=== PATIENT | female | born 1980 | race Caucasian/White ===

== ENCOUNTER 2017-09-10 10:04 | Inpatient (IN) | payer OTHER ==
[2017-09-10 10:57] VITALS: BMI 31.8
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
[2017-09-10] MEDS ORDERED: P-EPHED 60MG/TRIPROLIDI 2.5MG TABLET PO PRN (12:54)
[2017-09-10] MEDS ORDERED: IBUPROFEN 400 MG TABLET (FP) PO PRN (12:54)
[2017-09-10] MEDS ORDERED: MAGNESIUM CITRATE 300 ML BOTTLE PO PRN (12:54)
[2017-09-10] MEDS ORDERED: MENTHOL/PHENOL 1 EACH UD MM PRN (12:54)
[2017-09-10] MEDS ORDERED: LOPERAMIDE HCL 2 MG CAPSULE PO PRN (12:54)
[2017-09-10] MEDS ORDERED: hydrOXYzine PAMOATE 50 MG CAPSULE (FP) PO PRN (12:54)
[2017-09-10] MEDS ORDERED: MAGNESIUM HYDROX 2400MG/30ML ORAL SUSPENSION 30 ML CUP PO PRN (12:54)
[2017-09-10] MEDS ORDERED: ACETAMINOPHEN 325 MG TABLET (FP) PO PRN (12:54)
[2017-09-10 16:41] LABS: HEMATOCRIT 39.8 % (32.4-45.2); HEMOGLOBIN 13.6 GM/dL (10.7-15.3); MCH 31.3 pg (25.7-33.7); MCHC 34.2 g/dl (32.0-36.0); MEAN CELL VOLUME 91.3 fl (80-96); MEAN PLT VOLUME 9.3 fl (7.5-11.1); PLATELET COUNT 379 K/MM3 (134-434); RBC 4.35 M/mm3 (3.60-5.2); RDW 12.9 % (11.6-15.6); WHITE BLOOD COUNT 15.2 K/mm3 (4.0-10.0)
[2017-09-10 16:55] LABS: ALBUMIN 4.2 g/dl (3.4-5.0); ALK PHOS 69 U/L (45-117); ANION GAP 6 (8-16); BILIRUBIN,TOTAL 0.7 mg/dL (0.2-1.0); BLOOD UREA NITROGEN 23 mg/dL (7-18); CALCIUM 8.9 mg/dL (8.5-10.1); CHLORIDE 106 mmol/L (98-107); CO2 25 mmol/L (21-32); CREATININE 0.8 mg/dL (0.55-1.02); GLUCOSE,RANDOM 290 mg/dL (74-106); SGOT/AST 5 U/L (15-37); SGPT/ALT 22 U/L (12-78); SODIUM 137 mmol/L (136-145); TOT PROT 7.2 g/dl (6.4-8.2)
[2017-09-10] MEDS: TOPIRAMATE 25 MG TABLET (FP) PO SCH (22:31)
[2017-09-10] MEDS: QUEtiapine FUMARATE 100 MG TABLET (FP) PO SCH (22:31)
[2017-09-10] MEDS: THIAMINE HCL 100 MG TABLET (FP) PO SCH (22:31)
[2017-09-10] MEDS: NICOTINE 21 MG/24 HOURS TOPICAL PATCH TD SCH (22:31)
[2017-09-10] MEDS: DIVALPROEX SODIUM 500 MG TABLET E.C. PO SCH (22:31)
[2017-09-11 01:39] LABS: URINE APPEARANCE CLOUDY; URINE BILIRUBIN NEGATIVE (NEGATIVE); URINE BLOOD NEGATIVE (NEGATIVE); URINE COLOR YELLOW; URINE GLUCOSE (UA) 3+ (NEGATIVE); URINE KETONE TRACE (NEGATIVE); URINE NITRITE NEGATIVE (NEGATIVE); URINE PROTEIN NEGATIVE (NEGATIVE); URINE UROBILINOGEN NEGATIVE mg/dL (0.2-1.0)
[2017-09-11] MEDS: TOPIRAMATE 25 MG TABLET (FP) PO SCH ×2 (10:04→21:17)
[2017-09-11] MEDS: QUEtiapine FUMARATE 100 MG TABLET (FP) PO SCH ×2 (10:04→21:17)
[2017-09-11] MEDS: NICOTINE 21 MG/24 HOURS TOPICAL PATCH TD SCH (10:04)
[2017-09-11] MEDS: DIVALPROEX SODIUM 500 MG TABLET E.C. PO SCH ×2 (10:04→21:17)
[2017-09-11] MEDS: PRENATAL VITAMINS W/ FOLIC ACID TABLET (FP) PO SCH (10:04)
[2017-09-11 10:54] LABS: URINE LEUK ESTERASE Negative (NEGATIVE)
[2017-09-11] MEDS: INSULIN (NOVOLOG) ASPART 100 UNITS/ML 10ML VIAL SQ SCH ×2 (16:43→21:02)
[2017-09-11] MEDS ORDERED: INSULIN (NOVOLOG) ASPART 100 UNITS/ML 10ML VIAL ONE (16:45)
[2017-09-11] MEDS: metFORMIN HCL 500 MG TABLET (FP) PO SCH ×2 (16:45→16:46)
[2017-09-11] MEDS: THIAMINE HCL 100 MG TABLET (FP) PO SCH (23:39)
[2017-09-12] MEDS: metFORMIN HCL 500 MG TABLET (FP) PO SCH ×2 (06:47→16:55)
[2017-09-12] MEDS: INSULIN (NOVOLOG) ASPART 100 UNITS/ML 10ML VIAL SQ SCH ×4 (06:48→22:36)
[2017-09-12] MEDS ORDERED: INSULIN (NOVOLOG) ASPART 100 UNITS/ML 10ML VIAL ONE ×3 (06:48→16:53)
--- NOTE | 2017-09-12 08:34 | EKG ---
Test Reason : Blood Pressure : / mmHG Vent. Rate : 098 BPM Atrial Rate : 098 BPM P-R Int : 210 ms QRS Dur : 086 ms QT Int : 342 ms P-R-T Axes : 067 060 051 degrees QTc Int : 436 ms SINUS RHYTHM WITH 1ST DEGREE A-V BLOCK OTHERWISE NORMAL ECG NO PREVIOUS ECGS AVAILABLE Confirmed by MARCOS CHING MD ([id number]) on 09/12/2017 8:33:52 AM Referred By: Confirmed By:MARCOS CHING MD
[2017-09-12] MEDS: QUEtiapine FUMARATE 100 MG TABLET (FP) PO SCH ×2 (10:05→22:33)
[2017-09-12] MEDS: TOPIRAMATE 25 MG TABLET (FP) PO SCH ×2 (10:05→22:33)
[2017-09-12] MEDS: DIVALPROEX SODIUM 500 MG TABLET E.C. PO SCH ×2 (10:05→22:33)
[2017-09-12] MEDS: NICOTINE 21 MG/24 HOURS TOPICAL PATCH TD SCH (10:06)
[2017-09-12] MEDS: PRENATAL VITAMINS W/ FOLIC ACID TABLET (FP) PO SCH (10:06)
[2017-09-12] MEDS: NICOTINE POLACRILEX 4 MG GUM BC PRN (18:46)
[2017-09-12] MEDS: THIAMINE HCL 100 MG TABLET (FP) PO SCH (22:33)
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
[2017-09-13] MEDS: metFORMIN HCL 500 MG TABLET (FP) PO SCH ×2 (07:08→17:04)
[2017-09-13] MEDS: INSULIN (NOVOLOG) ASPART 100 UNITS/ML 10ML VIAL SQ SCH ×4 (07:09→22:08)
[2017-09-13] MEDS: NICOTINE 21 MG/24 HOURS TOPICAL PATCH TD SCH (10:09)
[2017-09-13] MEDS: PRENATAL VITAMINS W/ FOLIC ACID TABLET (FP) PO SCH (10:09)
[2017-09-13] MEDS: DIVALPROEX SODIUM 500 MG TABLET E.C. PO SCH ×2 (10:09→22:07)
[2017-09-13] MEDS: QUEtiapine FUMARATE 100 MG TABLET (FP) PO SCH ×2 (10:09→22:09)
[2017-09-13] MEDS: TOPIRAMATE 25 MG TABLET (FP) PO SCH ×2 (10:09→22:07)
[2017-09-13] MEDS: NICOTINE POLACRILEX 4 MG GUM BC PRN ×2 (10:11→19:19)
[2017-09-13] MEDS ORDERED: INSULIN (NOVOLOG) ASPART 100 UNITS/ML 10ML VIAL ONE ×2 (12:07→23:18)
[2017-09-13] MEDS ORDERED: QUEtiapine FUMARATE 50 MG TABLET ONE (20:50)
[2017-09-13] MEDS: THIAMINE HCL 100 MG TABLET (FP) PO SCH (22:07)
[2017-09-14] MEDS: INSULIN (NOVOLOG) ASPART 100 UNITS/ML 10ML VIAL SQ SCH ×4 (07:08→22:22)
[2017-09-14] MEDS: metFORMIN HCL 500 MG TABLET (FP) PO SCH ×2 (07:08→16:55)
[2017-09-14] MEDS ORDERED: QUEtiapine FUMARATE 50 MG TABLET ONE (08:49)
[2017-09-14] MEDS: NICOTINE 21 MG/24 HOURS TOPICAL PATCH TD SCH (10:19)
[2017-09-14] MEDS: TOPIRAMATE 25 MG TABLET (FP) PO SCH ×2 (10:19→21:44)
[2017-09-14] MEDS: QUEtiapine FUMARATE 100 MG TABLET (FP) PO SCH ×2 (10:19→21:44)
[2017-09-14] MEDS: DIVALPROEX SODIUM 500 MG TABLET E.C. PO SCH ×2 (10:19→21:44)
[2017-09-14] MEDS: PRENATAL VITAMINS W/ FOLIC ACID TABLET (FP) PO SCH (10:19)
[2017-09-14] MEDS: NICOTINE POLACRILEX 4 MG GUM BC PRN ×3 (10:20→16:56)
[2017-09-14] MEDS ORDERED: INSULIN (NOVOLOG) ASPART 100 UNITS/ML 10ML VIAL ONE (11:57)
[2017-09-14] MEDS: THIAMINE HCL 100 MG TABLET (FP) PO SCH (21:45)
[2017-09-15] MEDS: INSULIN (NOVOLOG) ASPART 100 UNITS/ML 10ML VIAL SQ SCH ×4 (07:06→21:36)
[2017-09-15] MEDS: metFORMIN HCL 500 MG TABLET (FP) PO SCH ×2 (07:06→16:58)
[2017-09-15] MEDS: NICOTINE 21 MG/24 HOURS TOPICAL PATCH TD SCH (10:21)
[2017-09-15] MEDS: DIVALPROEX SODIUM 500 MG TABLET E.C. PO SCH ×2 (10:21→21:37)
[2017-09-15] MEDS: PRENATAL VITAMINS W/ FOLIC ACID TABLET (FP) PO SCH (10:21)
[2017-09-15] MEDS: QUEtiapine FUMARATE 100 MG TABLET (FP) PO SCH ×2 (10:21→21:37)
[2017-09-15] MEDS: NICOTINE POLACRILEX 4 MG GUM BC PRN ×4 (10:21→19:55)
[2017-09-15] MEDS: TOPIRAMATE 25 MG TABLET (FP) PO SCH ×2 (10:21→21:37)
[2017-09-15] MEDS ORDERED: INSULIN (NOVOLOG) ASPART 100 UNITS/ML 10ML VIAL ONE ×3 (11:41→22:15)
[2017-09-15] MEDS: THIAMINE HCL 100 MG TABLET (FP) PO SCH (21:37)
[2017-09-16] MEDS: metFORMIN HCL 500 MG TABLET (FP) PO SCH ×2 (06:49→16:44)
[2017-09-16] MEDS ORDERED: INSULIN (NOVOLOG) ASPART 100 UNITS/ML 10ML VIAL ONE ×4 (06:51→21:35)
[2017-09-16] MEDS: INSULIN (NOVOLOG) ASPART 100 UNITS/ML 10ML VIAL SQ SCH ×4 (06:52→21:34)
[2017-09-16] MEDS: NICOTINE 21 MG/24 HOURS TOPICAL PATCH TD SCH (10:26)
[2017-09-16] MEDS: QUEtiapine FUMARATE 100 MG TABLET (FP) PO SCH ×2 (10:26→21:35)
[2017-09-16] MEDS: DIVALPROEX SODIUM 500 MG TABLET E.C. PO SCH ×2 (10:26→21:35)
[2017-09-16] MEDS: TOPIRAMATE 25 MG TABLET (FP) PO SCH ×2 (10:26→21:35)
[2017-09-16] MEDS: PRENATAL VITAMINS W/ FOLIC ACID TABLET (FP) PO SCH (10:26)
[2017-09-16] MEDS: NICOTINE POLACRILEX 4 MG GUM BC PRN ×3 (10:27→21:36)
[2017-09-16] MEDS: MAG HYDROX/AL HYDROX/SIMETH 30 ML UNIT-DOSE CUP PO PRN (14:34)
[2017-09-16] MEDS: THIAMINE HCL 100 MG TABLET (FP) PO SCH (21:35)
[2017-09-17] MEDS: metFORMIN HCL 500 MG TABLET (FP) PO SCH ×2 (07:09→16:53)
[2017-09-17] MEDS: INSULIN (NOVOLOG) ASPART 100 UNITS/ML 10ML VIAL SQ SCH ×4 (07:09→21:38)
[2017-09-17] MEDS: QUEtiapine FUMARATE 100 MG TABLET (FP) PO SCH ×2 (10:22→21:36)
[2017-09-17] MEDS: DIVALPROEX SODIUM 500 MG TABLET E.C. PO SCH ×2 (10:22→21:36)
[2017-09-17] MEDS: PRENATAL VITAMINS W/ FOLIC ACID TABLET (FP) PO SCH (10:22)
[2017-09-17] MEDS: TOPIRAMATE 25 MG TABLET (FP) PO SCH ×2 (10:22→21:36)
[2017-09-17] MEDS: NICOTINE 21 MG/24 HOURS TOPICAL PATCH TD SCH (10:24)
[2017-09-17] MEDS: NICOTINE POLACRILEX 4 MG GUM BC PRN ×3 (10:45→21:37)
[2017-09-17] MEDS ORDERED: INSULIN (NOVOLOG) ASPART 100 UNITS/ML 10ML VIAL ONE ×2 (11:34→22:02)
[2017-09-17] MEDS: guaiFENesin/D-METHORPHAN HB 10 ML UNIT-DOSE CUPS PO PRN (21:36)
[2017-09-17] MEDS: MAG HYDROX/AL HYDROX/SIMETH 30 ML UNIT-DOSE CUP PO PRN (21:36)
[2017-09-17] MEDS: THIAMINE HCL 100 MG TABLET (FP) PO SCH (21:36)
[2017-09-18] MEDS: metFORMIN HCL 500 MG TABLET (FP) PO SCH ×2 (07:14→16:48)
[2017-09-18] MEDS: INSULIN (NOVOLOG) ASPART 100 UNITS/ML 10ML VIAL SQ SCH ×4 (07:14→21:51)
[2017-09-18] MEDS: TOPIRAMATE 25 MG TABLET (FP) PO SCH ×2 (10:04→21:48)
[2017-09-18] MEDS: DIVALPROEX SODIUM 500 MG TABLET E.C. PO SCH ×2 (10:04→21:48)
[2017-09-18] MEDS: NICOTINE 21 MG/24 HOURS TOPICAL PATCH TD SCH (10:04)
[2017-09-18] MEDS: QUEtiapine FUMARATE 100 MG TABLET (FP) PO SCH ×2 (10:04→21:48)
[2017-09-18] MEDS: PRENATAL VITAMINS W/ FOLIC ACID TABLET (FP) PO SCH (10:04)
[2017-09-18] MEDS ORDERED: INSULIN (NOVOLOG) ASPART 100 UNITS/ML 10ML VIAL ONE (11:48)
[2017-09-18] MEDS: NICOTINE POLACRILEX 4 MG GUM BC PRN (11:55)
[2017-09-18] MEDS: MAG HYDROX/AL HYDROX/SIMETH 30 ML UNIT-DOSE CUP PO PRN (13:46)
[2017-09-18] MEDS: THIAMINE HCL 100 MG TABLET (FP) PO SCH (21:48)
[2017-09-19] MEDS: NICOTINE POLACRILEX 4 MG GUM BC PRN ×3 (06:20→16:54)
[2017-09-19] MEDS ORDERED: INSULIN (NOVOLOG) ASPART 100 UNITS/ML 10ML VIAL ONE (07:07)
[2017-09-19] MEDS: metFORMIN HCL 500 MG TABLET (FP) PO SCH ×2 (07:11→16:53)
[2017-09-19] MEDS: INSULIN (NOVOLOG) ASPART 100 UNITS/ML 10ML VIAL SQ SCH ×4 (07:11→21:32)
[2017-09-19] MEDS: DIVALPROEX SODIUM 500 MG TABLET E.C. PO SCH ×2 (10:09→21:28)
[2017-09-19] MEDS: QUEtiapine FUMARATE 100 MG TABLET (FP) PO SCH ×2 (10:10→21:28)
[2017-09-19] MEDS: PRENATAL VITAMINS W/ FOLIC ACID TABLET (FP) PO SCH (10:10)
[2017-09-19] MEDS: NICOTINE 21 MG/24 HOURS TOPICAL PATCH TD SCH (10:10)
[2017-09-19] MEDS: TOPIRAMATE 25 MG TABLET (FP) PO SCH ×2 (10:10→21:28)
[2017-09-19] MEDS: THIAMINE HCL 100 MG TABLET (FP) PO SCH (21:28)
[2017-09-19] MEDS: ALBUTEROL SO4 18 GM HFA INHALER IH PRN (21:29)
[2017-09-20] MEDS: INSULIN (NOVOLOG) ASPART 100 UNITS/ML 10ML VIAL SQ SCH ×4 (06:47→21:24)
[2017-09-20] MEDS: metFORMIN HCL 500 MG TABLET (FP) PO SCH ×2 (06:47→16:53)
[2017-09-20] MEDS ORDERED: INSULIN (NOVOLOG) ASPART 100 UNITS/ML 10ML VIAL ONE ×4 (07:13→21:48)
[2017-09-20] MEDS: NICOTINE 21 MG/24 HOURS TOPICAL PATCH TD SCH (09:24)
[2017-09-20] MEDS: NICOTINE POLACRILEX 4 MG GUM BC PRN ×4 (09:24→21:25)
[2017-09-20] MEDS: PRENATAL VITAMINS W/ FOLIC ACID TABLET (FP) PO SCH (09:25)
[2017-09-20] MEDS: QUEtiapine FUMARATE 100 MG TABLET (FP) PO SCH ×2 (09:25→21:24)
[2017-09-20] MEDS: DIVALPROEX SODIUM 500 MG TABLET E.C. PO SCH ×2 (09:25→21:24)
[2017-09-20] MEDS: TOPIRAMATE 25 MG TABLET (FP) PO SCH ×2 (10:27→21:24)
[2017-09-20] MEDS: THIAMINE HCL 100 MG TABLET (FP) PO SCH (21:24)
[2017-09-20] MEDS: guaiFENesin/D-METHORPHAN HB 10 ML UNIT-DOSE CUPS PO PRN (21:24)
[2017-09-21] MEDS: NICOTINE POLACRILEX 4 MG GUM BC PRN ×3 (06:30→15:06)
[2017-09-21] MEDS: metFORMIN HCL 500 MG TABLET (FP) PO SCH ×2 (07:09→16:39)
[2017-09-21] MEDS: INSULIN (NOVOLOG) ASPART 100 UNITS/ML 10ML VIAL SQ SCH ×4 (07:10→22:02)
[2017-09-21] MEDS: TOPIRAMATE 25 MG TABLET (FP) PO SCH ×2 (10:02→21:22)
[2017-09-21] MEDS: NICOTINE 21 MG/24 HOURS TOPICAL PATCH TD SCH (10:02)
[2017-09-21] MEDS: QUEtiapine FUMARATE 100 MG TABLET (FP) PO SCH ×2 (10:02→21:22)
[2017-09-21] MEDS: DIVALPROEX SODIUM 500 MG TABLET E.C. PO SCH ×2 (10:02→21:21)
[2017-09-21] MEDS: PRENATAL VITAMINS W/ FOLIC ACID TABLET (FP) PO SCH (10:02)
[2017-09-21] MEDS: ALBUTEROL SO4 18 GM HFA INHALER IH PRN (10:03)
[2017-09-21] MEDS ORDERED: INSULIN (NOVOLOG) ASPART 100 UNITS/ML 10ML VIAL ONE ×2 (16:39→21:23)
[2017-09-21] MEDS: NICOTINE 14 MG/24 HOURS TOPICAL PATCH TD SCH (18:02)
[2017-09-21] MEDS: NICOTINE POLACRILEX 2 MG GUM BUC PRN ×2 (18:02→21:28)
[2017-09-21] MEDS: THIAMINE HCL 100 MG TABLET (FP) PO SCH (21:21)
[2017-09-21] MEDS: MAG HYDROX/AL HYDROX/SIMETH 30 ML UNIT-DOSE CUP PO PRN (21:23)
[2017-09-22] MEDS: NICOTINE POLACRILEX 2 MG GUM BUC PRN ×6 (06:41→21:41)
[2017-09-22] MEDS: metFORMIN HCL 500 MG TABLET (FP) PO SCH ×2 (07:29→16:39)
[2017-09-22] MEDS: INSULIN (NOVOLOG) ASPART 100 UNITS/ML 10ML VIAL SQ SCH ×4 (07:29→21:19)
[2017-09-22] MEDS: DIVALPROEX SODIUM 500 MG TABLET E.C. PO SCH ×2 (10:22→21:22)
[2017-09-22] MEDS: TOPIRAMATE 25 MG TABLET (FP) PO SCH ×2 (10:22→21:22)
[2017-09-22] MEDS: PRENATAL VITAMINS W/ FOLIC ACID TABLET (FP) PO SCH (10:22)
[2017-09-22] MEDS: NICOTINE 14 MG/24 HOURS TOPICAL PATCH TD SCH (10:22)
[2017-09-22] MEDS: QUEtiapine FUMARATE 100 MG TABLET (FP) PO SCH ×2 (10:22→21:22)
[2017-09-22] MEDS: COLLOIDAL OATMEAL 1 BAR EACH TP PRN (11:46)
[2017-09-22] MEDS ORDERED: INSULIN (NOVOLOG) ASPART 100 UNITS/ML 10ML VIAL ONE ×2 (16:40→22:08)
[2017-09-22] MEDS: THIAMINE HCL 100 MG TABLET (FP) PO SCH (21:22)
[2017-09-23] MEDS: NICOTINE POLACRILEX 2 MG GUM BUC PRN ×5 (06:33→21:15)
[2017-09-23] MEDS: metFORMIN HCL 500 MG TABLET (FP) PO SCH ×2 (07:13→16:57)
[2017-09-23] MEDS: INSULIN (NOVOLOG) ASPART 100 UNITS/ML 10ML VIAL SQ SCH ×4 (07:14→22:11)
[2017-09-23] MEDS ORDERED: INSULIN (NOVOLOG) ASPART 100 UNITS/ML 10ML VIAL ONE ×4 (07:14→22:12)
[2017-09-23] MEDS: PRENATAL VITAMINS W/ FOLIC ACID TABLET (FP) PO SCH (10:38)
[2017-09-23] MEDS: TOPIRAMATE 25 MG TABLET (FP) PO SCH ×2 (10:38→21:14)
[2017-09-23] MEDS: QUEtiapine FUMARATE 100 MG TABLET (FP) PO SCH ×2 (10:39→21:14)
[2017-09-23] MEDS: DIVALPROEX SODIUM 500 MG TABLET E.C. PO SCH ×2 (10:39→21:14)
[2017-09-23] MEDS: NICOTINE 14 MG/24 HOURS TOPICAL PATCH TD SCH (10:39)
[2017-09-23] MEDS: THIAMINE HCL 100 MG TABLET (FP) PO SCH (21:14)
[2017-09-24] MEDS: NICOTINE POLACRILEX 2 MG GUM BUC PRN ×2 (06:40→10:44)
[2017-09-24] MEDS: metFORMIN HCL 500 MG TABLET (FP) PO SCH ×2 (07:11→16:52)
[2017-09-24] MEDS: INSULIN (NOVOLOG) ASPART 100 UNITS/ML 10ML VIAL SQ SCH ×4 (07:11→21:59)
[2017-09-24] MEDS: DIVALPROEX SODIUM 500 MG TABLET E.C. PO SCH ×2 (10:42→20:17)
[2017-09-24] MEDS: PRENATAL VITAMINS W/ FOLIC ACID TABLET (FP) PO SCH (10:42)
[2017-09-24] MEDS: TOPIRAMATE 25 MG TABLET (FP) PO SCH ×2 (10:42→20:18)
[2017-09-24] MEDS: QUEtiapine FUMARATE 100 MG TABLET (FP) PO SCH ×2 (10:43→20:17)
[2017-09-24] MEDS: NICOTINE 14 MG/24 HOURS TOPICAL PATCH TD SCH (10:46)
[2017-09-24] MEDS ORDERED: INSULIN (NOVOLOG) ASPART 100 UNITS/ML 10ML VIAL ONE ×2 (11:54→16:41)
[2017-09-24] MEDS ORDERED: TOPIRAMATE 25 MG TABLET (FP) PO SCH ×3 (20:00→22:00)
[2017-09-24] MEDS: THIAMINE HCL 100 MG TABLET (FP) PO SCH (21:59)
[2017-09-25] MEDS: metFORMIN HCL 500 MG TABLET (FP) PO SCH ×2 (06:53→16:33)
[2017-09-25] MEDS: guaiFENesin/D-METHORPHAN HB 10 ML UNIT-DOSE CUPS PO PRN (06:54)
[2017-09-25] MEDS: INSULIN (NOVOLOG) ASPART 100 UNITS/ML 10ML VIAL SQ SCH ×4 (07:10→21:37)
[2017-09-25] MEDS ORDERED: TOPIRAMATE 25 MG TABLET (FP) PO SCH ×2 (10:00)
[2017-09-25] MEDS: MAG HYDROX/AL HYDROX/SIMETH 30 ML UNIT-DOSE CUP PO PRN (10:20)
[2017-09-25] MEDS: NICOTINE 14 MG/24 HOURS TOPICAL PATCH TD SCH (10:21)
[2017-09-25] MEDS ORDERED: INSULIN (NOVOLOG) ASPART 100 UNITS/ML 10ML VIAL ONE ×3 (11:41→21:39)
[2017-09-25] MEDS: TOPIRAMATE 25 MG TABLET (FP) PO SCH ×2 (11:41→21:37)
[2017-09-25] MEDS: DIVALPROEX SODIUM 500 MG TABLET E.C. PO SCH ×2 (11:42→21:37)
[2017-09-25] MEDS: PRENATAL VITAMINS W/ FOLIC ACID TABLET (FP) PO SCH (11:42)
[2017-09-25] MEDS: QUEtiapine FUMARATE 100 MG TABLET (FP) PO SCH ×2 (11:42→21:37)
[2017-09-25] MEDS: NICOTINE POLACRILEX 2 MG GUM BUC PRN ×3 (14:29→21:44)
[2017-09-25] MEDS: THIAMINE HCL 100 MG TABLET (FP) PO SCH (21:37)
[2017-09-26] MEDS: metFORMIN HCL 500 MG TABLET (FP) PO SCH ×2 (07:02→17:12)
[2017-09-26] MEDS: INSULIN (NOVOLOG) ASPART 100 UNITS/ML 10ML VIAL SQ SCH ×4 (07:03→21:00)
[2017-09-26] MEDS: NICOTINE 14 MG/24 HOURS TOPICAL PATCH TD SCH (09:25)
[2017-09-26] MEDS: QUEtiapine FUMARATE 100 MG TABLET (FP) PO SCH ×2 (09:25→21:00)
[2017-09-26] MEDS: TOPIRAMATE 25 MG TABLET (FP) PO SCH ×2 (09:25→20:59)
[2017-09-26] MEDS: PRENATAL VITAMINS W/ FOLIC ACID TABLET (FP) PO SCH (09:25)
[2017-09-26] MEDS: DIVALPROEX SODIUM 500 MG TABLET E.C. PO SCH ×2 (09:25→20:59)
[2017-09-26] MEDS: guaiFENesin/D-METHORPHAN HB 10 ML UNIT-DOSE CUPS PO PRN (15:17)
[2017-09-26] MEDS: NICOTINE POLACRILEX 2 MG GUM BUC PRN ×2 (15:17→21:00)
[2017-09-26] MEDS: THIAMINE HCL 100 MG TABLET (FP) PO SCH (20:59)
[2017-09-27] MEDS: NICOTINE POLACRILEX 2 MG GUM BUC PRN ×3 (06:05→18:05)
[2017-09-27] MEDS ORDERED: INSULIN (NOVOLOG) ASPART 100 UNITS/ML 10ML VIAL ONE ×4 (07:18→20:48)
[2017-09-27] MEDS: INSULIN (NOVOLOG) ASPART 100 UNITS/ML 10ML VIAL SQ SCH ×4 (07:21→22:07)
[2017-09-27] MEDS: metFORMIN HCL 500 MG TABLET (FP) PO SCH ×2 (07:21→16:50)
[2017-09-27] MEDS: PRENATAL VITAMINS W/ FOLIC ACID TABLET (FP) PO SCH (10:17)
[2017-09-27] MEDS: DIVALPROEX SODIUM 500 MG TABLET E.C. PO SCH ×2 (10:17→20:28)
[2017-09-27] MEDS: NICOTINE 14 MG/24 HOURS TOPICAL PATCH TD SCH (10:18)
[2017-09-27] MEDS: QUEtiapine FUMARATE 100 MG TABLET (FP) PO SCH ×2 (10:18→20:28)
[2017-09-27] MEDS: TOPIRAMATE 25 MG TABLET (FP) PO SCH ×2 (10:18→20:28)
[2017-09-27] MEDS: MAG HYDROX/AL HYDROX/SIMETH 30 ML UNIT-DOSE CUP PO PRN (10:19)
[2017-09-27] MEDS ORDERED: PT OWN MED DRAWER 7, Y5N ONE ×2 (11:38→15:21)
[2017-09-27] MEDS: ALBUTEROL SO4 18 GM HFA INHALER IH PRN (15:21)
[2017-09-27] MEDS: THIAMINE HCL 100 MG TABLET (FP) PO SCH (22:07)
[2017-09-28] MEDS: MAG HYDROX/AL HYDROX/SIMETH 30 ML UNIT-DOSE CUP PO PRN (06:05)
[2017-09-28] MEDS: NICOTINE POLACRILEX 2 MG GUM BUC PRN ×5 (06:05→20:07)
[2017-09-28] MEDS: INSULIN (NOVOLOG) ASPART 100 UNITS/ML 10ML VIAL SQ SCH ×4 (07:06→21:59)
[2017-09-28] MEDS ORDERED: INSULIN (NOVOLOG) ASPART 100 UNITS/ML 10ML VIAL ONE ×4 (07:06→21:56)
[2017-09-28] MEDS: metFORMIN HCL 500 MG TABLET (FP) PO SCH ×2 (07:06→16:54)
[2017-09-28] MEDS: QUEtiapine FUMARATE 100 MG TABLET (FP) PO SCH ×2 (10:22→20:05)
[2017-09-28] MEDS: DIVALPROEX SODIUM 500 MG TABLET E.C. PO SCH ×2 (10:22→20:05)
[2017-09-28] MEDS: NICOTINE 14 MG/24 HOURS TOPICAL PATCH TD SCH (10:23)
[2017-09-28] MEDS: PRENATAL VITAMINS W/ FOLIC ACID TABLET (FP) PO SCH (10:23)
[2017-09-28] MEDS: TOPIRAMATE 25 MG TABLET (FP) PO SCH ×2 (10:23→20:06)
[2017-09-28] MEDS ORDERED: PT OWN MED DRAWER 7, Y5N ONE (11:27)
[2017-09-28] MEDS: AMMONIUM LACTATE 12% LOTION 225 GM BOTTLE TP PRN (18:02)
[2017-09-28] MEDS: TETRAHYDROZOLINE HCL 1 DROP DROPS OU PRN (18:03)
[2017-09-28] MEDS: THIAMINE HCL 100 MG TABLET (FP) PO SCH (21:54)
[2017-09-28] MEDS: COLLOIDAL OATMEAL 1 BAR EACH TP PRN (22:00)
[2017-09-29] MEDS: INSULIN (NOVOLOG) ASPART 100 UNITS/ML 10ML VIAL SQ SCH ×4 (07:11→21:04)
[2017-09-29] MEDS ORDERED: INSULIN (NOVOLOG) ASPART 100 UNITS/ML 10ML VIAL ONE ×3 (07:12→21:04)
[2017-09-29] MEDS: metFORMIN HCL 500 MG TABLET (FP) PO SCH ×2 (07:12→17:03)
[2017-09-29] MEDS: DIVALPROEX SODIUM 500 MG TABLET E.C. PO SCH ×2 (10:25→20:05)
[2017-09-29] MEDS: PRENATAL VITAMINS W/ FOLIC ACID TABLET (FP) PO SCH (10:25)
[2017-09-29] MEDS: TETRAHYDROZOLINE HCL 1 DROP DROPS OU PRN ×2 (10:25→17:46)
[2017-09-29] MEDS: TOPIRAMATE 25 MG TABLET (FP) PO SCH ×2 (10:25→20:08)
[2017-09-29] MEDS: QUEtiapine FUMARATE 100 MG TABLET (FP) PO SCH ×2 (10:25→20:01)
[2017-09-29] MEDS: NICOTINE 14 MG/24 HOURS TOPICAL PATCH TD SCH (10:26)
[2017-09-29] MEDS: NICOTINE POLACRILEX 2 MG GUM BUC PRN ×5 (10:26→22:28)
[2017-09-29] MEDS: ALBUTEROL SO4 18 GM HFA INHALER IH PRN (21:07)
[2017-09-29] MEDS: THIAMINE HCL 100 MG TABLET (FP) PO SCH (21:07)
[2017-09-30] MEDS: metFORMIN HCL 500 MG TABLET (FP) PO SCH ×2 (07:30→16:32)
[2017-09-30] MEDS: INSULIN (NOVOLOG) ASPART 100 UNITS/ML 10ML VIAL SQ SCH ×4 (07:32→23:02)
[2017-09-30] MEDS: PRENATAL VITAMINS W/ FOLIC ACID TABLET (FP) PO SCH (10:01)
[2017-09-30] MEDS: QUEtiapine FUMARATE 100 MG TABLET (FP) PO SCH ×2 (10:01→20:27)
[2017-09-30] MEDS: NICOTINE 14 MG/24 HOURS TOPICAL PATCH TD SCH (10:01)
[2017-09-30] MEDS: DIVALPROEX SODIUM 500 MG TABLET E.C. PO SCH ×2 (10:02→20:27)
[2017-09-30] MEDS: TOPIRAMATE 25 MG TABLET (FP) PO SCH ×2 (10:02→20:26)
[2017-09-30] MEDS: MAG HYDROX/AL HYDROX/SIMETH 30 ML UNIT-DOSE CUP PO PRN (10:02)
[2017-09-30] MEDS: NICOTINE POLACRILEX 2 MG GUM BUC PRN ×3 (10:03→20:28)
[2017-09-30] MEDS ORDERED: INSULIN (NOVOLOG) ASPART 100 UNITS/ML 10ML VIAL ONE (16:28)
[2017-09-30] MEDS: THIAMINE HCL 100 MG TABLET (FP) PO SCH (22:02)
[2017-10-01] MEDS: NICOTINE POLACRILEX 2 MG GUM BUC PRN ×5 (07:11→21:25)
[2017-10-01] MEDS: metFORMIN HCL 500 MG TABLET (FP) PO SCH ×2 (07:29→16:56)
[2017-10-01] MEDS: INSULIN (NOVOLOG) ASPART 100 UNITS/ML 10ML VIAL SQ SCH ×4 (07:29→21:25)
[2017-10-01] MEDS: AMMONIUM LACTATE 12% LOTION 225 GM BOTTLE TP PRN (07:54)
[2017-10-01] MEDS: TOPIRAMATE 25 MG TABLET (FP) PO SCH ×2 (09:38→20:35)
[2017-10-01] MEDS: DIVALPROEX SODIUM 500 MG TABLET E.C. PO SCH ×2 (09:39→20:35)
[2017-10-01] MEDS: NICOTINE 14 MG/24 HOURS TOPICAL PATCH TD SCH (09:39)
[2017-10-01] MEDS: QUEtiapine FUMARATE 100 MG TABLET (FP) PO SCH ×2 (09:39→20:35)
[2017-10-01] MEDS: PRENATAL VITAMINS W/ FOLIC ACID TABLET (FP) PO SCH (09:39)
[2017-10-01] MEDS ORDERED: INSULIN (NOVOLOG) ASPART 100 UNITS/ML 10ML VIAL ONE ×3 (12:23→22:13)
[2017-10-01] MEDS: THIAMINE HCL 100 MG TABLET (FP) PO SCH (21:25)
[2017-10-02] MEDS: metFORMIN HCL 500 MG TABLET (FP) PO SCH ×2 (07:17→17:04)
[2017-10-02] MEDS: INSULIN (NOVOLOG) ASPART 100 UNITS/ML 10ML VIAL SQ SCH ×4 (07:17→21:41)
[2017-10-02] MEDS: PRENATAL VITAMINS W/ FOLIC ACID TABLET (FP) PO SCH (10:42)
[2017-10-02] MEDS: NICOTINE 14 MG/24 HOURS TOPICAL PATCH TD SCH (10:42)
[2017-10-02] MEDS: DIVALPROEX SODIUM 500 MG TABLET E.C. PO SCH ×2 (10:42→21:42)
[2017-10-02] MEDS: TOPIRAMATE 25 MG TABLET (FP) PO SCH ×2 (10:42→21:42)
[2017-10-02] MEDS: QUEtiapine FUMARATE 100 MG TABLET (FP) PO SCH ×2 (10:42→21:42)
[2017-10-02] MEDS: NICOTINE POLACRILEX 2 MG GUM BUC PRN ×2 (10:44→21:42)
[2017-10-02] MEDS ORDERED: INSULIN (NOVOLOG) ASPART 100 UNITS/ML 10ML VIAL ONE ×2 (11:46→16:57)
[2017-10-02] MEDS: THIAMINE HCL 100 MG TABLET (FP) PO SCH (21:42)
[2017-10-03] MEDS: INSULIN (NOVOLOG) ASPART 100 UNITS/ML 10ML VIAL SQ SCH ×4 (07:09→21:53)
[2017-10-03] MEDS: metFORMIN HCL 500 MG TABLET (FP) PO SCH ×2 (07:09→16:58)
[2017-10-03] MEDS: TOPIRAMATE 25 MG TABLET (FP) PO SCH ×2 (10:43→20:30)
[2017-10-03] MEDS: NICOTINE POLACRILEX 2 MG GUM BUC PRN ×3 (10:43→17:30)
[2017-10-03] MEDS: DIVALPROEX SODIUM 500 MG TABLET E.C. PO SCH ×2 (10:43→20:30)
[2017-10-03] MEDS: PRENATAL VITAMINS W/ FOLIC ACID TABLET (FP) PO SCH (10:43)
[2017-10-03] MEDS: NICOTINE 14 MG/24 HOURS TOPICAL PATCH TD SCH (10:43)
[2017-10-03] MEDS: QUEtiapine FUMARATE 100 MG TABLET (FP) PO SCH ×2 (10:43→20:30)
[2017-10-03] MEDS ORDERED: INSULIN (NOVOLOG) ASPART 100 UNITS/ML 10ML VIAL ONE (16:47)
[2017-10-03] MEDS ORDERED: QUEtiapine FUMARATE 50 MG TABLET ONE (19:51)
[2017-10-03] MEDS: THIAMINE HCL 100 MG TABLET (FP) PO SCH (21:53)
[2017-10-04] MEDS: metFORMIN HCL 500 MG TABLET (FP) PO SCH ×2 (07:10→17:37)
[2017-10-04] MEDS: INSULIN (NOVOLOG) ASPART 100 UNITS/ML 10ML VIAL SQ SCH ×4 (07:10→22:29)
[2017-10-04] MEDS: NICOTINE 14 MG/24 HOURS TOPICAL PATCH TD SCH (10:38)
[2017-10-04] MEDS: TOPIRAMATE 25 MG TABLET (FP) PO SCH ×2 (10:38→21:45)
[2017-10-04] MEDS: PRENATAL VITAMINS W/ FOLIC ACID TABLET (FP) PO SCH (10:39)
[2017-10-04] MEDS: DIVALPROEX SODIUM 500 MG TABLET E.C. PO SCH ×2 (10:39→21:45)
[2017-10-04] MEDS: QUEtiapine FUMARATE 100 MG TABLET (FP) PO SCH ×2 (10:39→21:45)
[2017-10-04] MEDS ORDERED: INSULIN (NOVOLOG) ASPART 100 UNITS/ML 10ML VIAL ONE (11:58)
[2017-10-04] MEDS: NICOTINE POLACRILEX 2 MG GUM BUC PRN (12:22)
[2017-10-04] MEDS: THIAMINE HCL 100 MG TABLET (FP) PO SCH (21:44)
[2017-10-05] MEDS: metFORMIN HCL 500 MG TABLET (FP) PO SCH ×2 (06:55→16:49)
[2017-10-05] MEDS: INSULIN (NOVOLOG) ASPART 100 UNITS/ML 10ML VIAL SQ SCH ×4 (06:55→21:38)
[2017-10-05] MEDS: TOPIRAMATE 25 MG TABLET (FP) PO SCH ×2 (10:42→21:37)
[2017-10-05] MEDS: NICOTINE 14 MG/24 HOURS TOPICAL PATCH TD SCH (10:42)
[2017-10-05] MEDS: PRENATAL VITAMINS W/ FOLIC ACID TABLET (FP) PO SCH (10:42)
[2017-10-05] MEDS: QUEtiapine FUMARATE 100 MG TABLET (FP) PO SCH ×2 (10:42→21:37)
[2017-10-05] MEDS: DIVALPROEX SODIUM 500 MG TABLET E.C. PO SCH ×2 (10:42→21:37)
[2017-10-05] MEDS: NICOTINE POLACRILEX 2 MG GUM BUC PRN ×3 (10:44→21:39)
--- NOTE | 2017-10-05 11:49 | PN ---
Psychiatric Progress Note Vital Signs: Vital Signs Period Temp Pulse Resp BP Sys/Gibson Pulse Ox Last 24 Hr 97.6 F 88 16-18 101/65 Date of Session: 10/05/17 Chief Complaint:: Discharge Note HPI: Patient addressing Alcohol, Cocaine Dependence comorbid with Nicotine Dependence and Bipolar Disorder ROS: Asthma, Anemia, type 2 DM, HLD, Uterine fibroid Current Medications: Active Medications Generic Name Dose Route Start Last Admin Trade Name Freq PRN Reason Stop Dose Admin Acetaminophen 650 mg 09/10/17 12:54 09/30/17 19:12 Tylenol - PO 650 mg Q4H PRN Administration PAIN Al Hydroxide/Mg Hydroxide 30 ml 09/10/17 12:54 09/30/17 10:02 Mylanta Oral Suspension - PO 30 ml Q6H PRN Administration DYSPEPSIA Albuterol Sulfate 2 puff 09/13/17 22:29 09/29/17 21:07 Ventolin Hfa Inhaler - IH 2 puff Q6H PRN Administration WHEEZING Colloidal Oatmeal 1 applic 09/21/17 17:07 09/28/17 22:00 Aveeno Soap - TP 1 bar DAILY PRN Administration HYGEINE Divalproex Sodium 500 mg 09/25/17 10:00 10/05/17 10:42 Depakote - PO 500 mg DAILY EM Administration Divalproex Sodium 500 mg 09/24/17 20:00 10/04/17 21:45 Depakote - PO 500 mg HS@2000 EM Administration Eucalyptus/Menthol/Phenol/Sorbitol 1 each 09/10/17 12:54 Cepastat Lozenge - MM Q4H PRN SORE THROAT Guaifenesin 10 ml 09/10/17 12:54 09/26/17 15:17 Robitussin Dm - PO 10 ml Q6H PRN Administration COUGH Hydroxyzine Pamoate 50 mg 09/10/17 12:54 Vistaril - PO Q4H PRN AGITATION Ibuprofen 400 mg 09/10/17 12:54 Motrin - PO Q6H PRN SEVERE PAIN Insulin Aspart 0 units 09/11/17 16:30 10/05/17 06:55 Novolog Vial SQ Not Given ACHS [facility] Protocol Lactic Acid 1 applic 09/28/17 12:44 10/01/17 07:54 Lac-Hydrin 12 TP 1 applic DAILY PRN Administration DRY SKIN Loperamide HCl 4 mg 09/10/17 12:54 Imodium - PO Q6H PRN DIARRHEA Magnesium Citrate 300 ml 09/10/17 12:54 Citroma - PO Q48H PRN CONSTIPATION Magnesium Hydroxide 30 ml 09/10/17 12:54 Milk Of Magnesia - PO DAILY PRN CONSTIPATION Metformin HCl 500 mg 09/11/17 15:30 10/05/17 06:55 Glucophage - PO Not Given BID@0700,1630 EM Nicotine 14 mg 09/21/17 17:30 10/05/17 10:42 Nicoderm Patch - TD 14 mg DAILY EM Administration Nicotine Polacrilex 2 mg 09/21/17 17:07 10/05/17 10:44 Nicorette Gum - BUC 2 mg Q2H PRN Administration NICOTINE REPLACEMENT RX Multivit/Folic Acid/Iron 1 tab 09/11/17 10:00 10/05/17 10:42 Vitamins (Sjr) - PO 1 tab DAILY EM Administration Pseudoephedrine/Triprolidine 1 combo 09/10/17 12:54 Actifed - PO TID PRN NASAL CONGESTION Quetiapine Fumarate 100 mg 09/25/17 10:00 10/05/17 10:42 Seroquel - PO 100 mg DAILY EM Administration Quetiapine Fumarate 100 mg 09/24/17 20:00 10/04/17 21:45 Seroquel - PO 100 mg HS@1999 EM Administration Tetrahydrozoline HCl 1 drop 09/28/17 12:44 09/29/17 17:46 Visine - OU 1 drop BID PRN Administration DRY EYES Thiamine HCl 100 mg 09/10/17 22:00 10/04/17 21:44 Vitamin B1 - PO 100 mg HS EM Administration Topiramate 50 mg 09/24/17 20:00 10/04/17 21:45 Topamax - PO 50 mg HS@1999 EM Administration Topiramate 50 mg 09/25/17 10:00 10/05/17 10:42 Topamax - PO 50 mg DAILY EM Administration Current Side Effect: No Lab tests ordered: Yes Lab tests reviewed: Yes Provider note:: Patient will complete this program on 10/06/17. She has met her treatment goals and will continue to address her issues in assisted residential treatment at [facility] at [address] [place] [id number]. 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 She responded well to Depakote 500 mg po BID, Seroquel 100 mg po BID and Topiramate 50 mg po BID. Scripts for 30 days supply of these medications will be electronically transmitted to [facility] at [address] [place] [address]. She is stable for discharge on 10/06/17 Total face to face time:: 35 Mental Status Exam - Mental Status Exam Alert and Oriented to: Time, Place, Person Cognitive Function: Fair Patient Appearance: Well Groomed Mood: Hopeful, Euthymic Affect: Appropriate Patient Behavior: Cooperative Speech Pattern: Clear Voice Loudness: Normal Thought Process: Intact Thought Disorder: Not Present Hallucinations: Denies Suicidal Ideation: Denies Homicidal Ideation: Denies Insight/Judgement: Fair Sleep: Fair Appetite: Good Muscle strength/Tone: Normal Gait/Station: Normal Psychiatric Treatment Plan - Problem List (1) Alcohol dependence Current Visit: Yes (2) Cocaine dependence Current Visit: Yes Qualifiers: Substance use status: uncomplicated Qualified Code(s): F14.20 - Cocaine dependence, uncomplicated (3) Nicotine dependence Current Visit: Yes (4) Bipolar disorder Current Visit: No (5) Schizoaffective disorder Current Visit: Yes (6) Asthma Current Visit: Yes Qualifiers: Asthma severity: mild Asthma persistence: unspecified Asthma complication type: uncomplicated Qualified Code(s): J45.909 - Unspecified asthma, uncomplicated (7) DM (diabetes mellitus) Current Visit: Yes Qualifiers: Diabetes mellitus type: type 2 Diabetes mellitus complication status: with neurologic complications Diabetes mellitus complication detail: with polyneuropathy Diabetes mellitus assisted insulin use: with assisted use Qualified Code(s): E11.42 - Type 2 diabetes mellitus with diabetic polyneuropathy Comment: 30 UNITS LANTUS HS DAILY LAST DOSE 07/23/16 FS 216 (8) Hyperlipidemia Current Visit: Yes (9) Anemia Current Visit: Yes (10) PPD positive Current Visit: Yes (11) Fibroid uterus Current Visit: Yes Initial treatment plan: Patient will be discharged tomorrow and 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
[2017-10-05] MEDS ORDERED: INSULIN (NOVOLOG) ASPART 100 UNITS/ML 10ML VIAL ONE (16:40)
[2017-10-05] MEDS: THIAMINE HCL 100 MG TABLET (FP) PO SCH (21:37)
[2017-10-06] MEDS: metFORMIN HCL 500 MG TABLET (FP) PO SCH (06:38)
[2017-10-06] MEDS: NICOTINE POLACRILEX 2 MG GUM BUC PRN (06:40)
[2017-10-06] MEDS: INSULIN (NOVOLOG) ASPART 100 UNITS/ML 10ML VIAL SQ SCH (06:40)
[2017-10-06 07:00] VITALS: BP 105/60; PULSE 80; TEMP 97.5
[2017-10-06] MEDS: QUEtiapine FUMARATE 100 MG TABLET (FP) PO SCH (09:00)
[2017-10-06] MEDS: DIVALPROEX SODIUM 500 MG TABLET E.C. PO SCH (09:00)
[2017-10-06] MEDS: NICOTINE 14 MG/24 HOURS TOPICAL PATCH TD SCH (09:00)
[2017-10-06] MEDS: PRENATAL VITAMINS W/ FOLIC ACID TABLET (FP) PO SCH (09:00)
[2017-10-06] MEDS: TOPIRAMATE 25 MG TABLET (FP) PO SCH (09:00)
== END 2017-10-06 09:25 | disposition home or self-care (01) | DRG 772 ==
LOC: YASAS 10:04 → Y3W 15:18
PROVIDERS: ADMIT Psychiatry & Neurology Psychiatry; ATTEND Psychiatry & Neurology Psychiatry
PROC: HZ42ZZZ Group Counseling for Substance Abuse Treatment, Cognitive-Behavioral (ICD-10-PCS; principal; 2017-09-10)
DX: F10.20 Alcohol dependence, uncomplicated (principal); F14.20 Cocaine dependence, uncomplicated; F17.210 Nicotine dependence, cigarettes, uncomplicated; F31.9 Bipolar disorder, unspecified; F25.9 Schizoaffective disorder, unspecified; J45.909 Unspecified asthma, uncomplicated; E11.42 Type 2 diabetes mellitus with diabetic polyneuropathy; E78.5 Hyperlipidemia, unspecified; D64.9 Anemia, unspecified; R76.11 Nonspecific reaction to tuberculin skin test without active tuberculosis; D25.9 Leiomyoma of uterus, unspecified; Z79.84 Long term (current) use of oral hypoglycemic drugs; Z79.4 Long term (current) use of insulin; Z59.0 Homelessness
CPT/HCPCS: 36415; 80053; 80164; 81003; 85027; 86593; 93005; 93010